=== PATIENT | female | born 1985 | race Hispanic/Latino ===

== ENCOUNTER 2016-07-26 19:52 | Emergency (ER) | payer SELFPAY ==
[2016-07-26 20:02] VITALS: TEMP 97.9; O2SAT 100
--- NOTE | 2016-07-26 20:34 | ED PDOC ---
HPI: Chest Pain Time Seen by Provider: 07/26/16 20:19 Chief Complaint (Nursing): Chest Pain Chief Complaint (Provider): chest pain History Per: Patient History/Exam Limitations: no limitations Onset/Duration Of Symptoms: Days (2), Waxing/Waning Quality: Squeezing Exacerbating Factors: None Alleviating Factors: None Additional History Per: Patient Additional Complaint(s): 31 y/o female presents with intermittent chest pain x 2 days. Patient notes pain to start from midsternal area across to left side of chest. Associated nausea episode yesterday, and dizziness episode earlier today; none at present. Patient notes vaginal bleeding x 1 month, for which she is being followed by her Retail Agent for and has recently started OCP. Denies headache, dizziness, vision changes, extremity numbness/weakness, shortness of breath, palpitations, abdominal pain, leg pain/swelling, recent travel. Past Medical History Reviewed: Historical Data, Nursing Documentation, Vital Signs Vital Signs: Last Vital Signs Temp 97.9 F 07/26/16 23:17 Pulse 85 07/26/16 23:17 Resp 16 07/26/16 23:17 BP 125/80 07/26/16 23:17 Pulse Ox 100 07/26/16 23:17 - Medical History PMH: No Chronic Diseases - Surgical History Surgical History: Tonsillectomy - Family History Family History: States: Unknown Family Hx - Social History Current smoker - smoking cessation education provided: No Alcohol: Occasional Drugs: Denies - Immunization History Hx Tetanus Toxoid Vaccination: No Hx Influenza Vaccination: No Hx Pneumococcal Vaccination: No - Home Medications Home Medications: Ambulatory Orders Medication Instructions Recorded No Known Home Med 07/26/16 - Allergies Allergies/Adverse Reactions: Allergies Allergy/AdvReac Type Severity Reaction Status Date / Time No Known Allergies Allergy Verified 10/06/13 18:12 Review of Systems ROS Statement: Except As Marked, All Systems Reviewed And Found Negative Cardiovascular: Positive for: Chest Pain Physical Exam - Reviewed Nursing Documentation Reviewed: Yes Vital Signs Reviewed: Yes - Physical Exam Appears: Positive for: Well, Non-toxic, No Acute Distress Head Exam: Positive for: ATRAUMATIC, NORMAL INSPECTION, NORMOCEPHALIC Skin: Positive for: Normal Color Eye Exam: Positive for: Normal appearance ENT: Positive for: Normal ENT Inspection Cardiovascular/Chest: Positive for: Regular Rate, Rhythm Respiratory: Positive for: Normal Breath Sounds Gastrointestinal/Abdominal: Positive for: Normal Exam Back: Positive for: Normal Inspection Extremity: Positive for: Normal ROM Neurologic/Psych: Positive for: Alert, Oriented - Laboratory Results Result Diagrams: 07/26/16 20:36 07/26/16 20:36 - ECG ECG: Positive for: Viewed By Me (reviewed by ED attending) ECG Rhythm: Positive for: Sinus Rhythm O2 Sat by Pulse Oximetry: 100 - Radiology X-Ray: Viewed By Me X-Ray Interpretation: No Acute Disease - Progress ED Course And Treament: labs, ekg, chest xray, toradol, pepcid Patient educated on findings, discharged with instructions to [facility]. Return to ED for worsening/concerning symptoms. Disposition - Clinical Impression Clinical Impression: Chest pain Counseled Patient/Family Regarding: Studies Performed, Diagnosis, Need For Followup - Disposition Referrals: [facility] [Outside] Disposition: Routine/Home Disposition Time: 23:23 Condition: IMPROVED Instructions: Chest Pain (ED)
[2016-07-26 20:42] LABS: BASO % 0.6 % (0.0-2.0); EOS # 0.1 K/uL (0.0-0.7); EOS % 1.6 % (0.0-4.0); HEMATOCRIT 38.8 % (34.0-47.0); LYMPH # 2.8 K/uL (1.0-4.3); LYMPH % 45.6 % (20.0-40.0); MEAN CELL VOLUME 90.4 fl (81.0-99.0); MEAN CORPUSCULAR HGB CONC 33.2 g/dL (33.0-37.0); MEAN PLATELET VOLUME 8.8 fl (7.2-11.7); MONO # 0.3 K/uL (0.0-0.8); MONO % 5.5 % (0.0-10.0); NEUT # 2.9 K/uL (1.8-7.0); NEUT % 46.7 % (50.0-75.0); NRBC % 0.1 % (0.0-0.0); RED CELL DISTRIBUTION WIDTH 13.1 % (11.5-14.5); WHITE BLOOD COUNT 6.2 K/uL (4.8-10.8)
[2016-07-26 21:11] LABS: ALB/GLOB RATIO 1.4 (1.0-2.1); ALKALINE PHOSPHATASE 60 U/L (38-126); ALT/SGPT 43 U/L (9-52); AST/SGOT 37 U/L (14-36); BILIRUBIN,TOTAL 0.4 mg/dl (0.2-1.3); BLOOD UREA NITROGEN 13 mg/dl (7-17); CALCIUM 9.3 mg/dL (8.4-10.2); CARBON DIOXIDE 25 mmol/L (22-30); CHLORIDE 102 mmol/L (98-107); GFR AFRICAN-AMERICAN > 60; GLUCOSE,RANDOM 121 mg/dL (65-105); POTASSIUM 3.9 MMOL/L (3.6-5.0); SODIUM 137 mmol/l (132-148); TOTAL PROTEIN 7.1 G/DL (6.3-8.2)
[2016-07-26 23:17] VITALS: BP 125/80; PULSE 85; RESP 16
--- NOTE | 2016-07-27 08:56 | RAD ---
HISTORY: chest pain COMPARISON: No prior. TECHNIQUE: Chest PA and lateral FINDINGS: LUNGS: No active pulmonary disease. PLEURA: No significant pleural effusion identified. No pneumothorax apparent. CARDIOVASCULAR: Normal. OSSEOUS STRUCTURES: No significant abnormalities. VISUALIZED UPPER ABDOMEN: Normal. OTHER FINDINGS: None. IMPRESSION: No active disease.
== END 2016-07-26 23:31 | disposition home or self-care (01) ==
LOC: H.ER 19:52
DX: R07.9 Chest pain, unspecified (principal)
CPT/HCPCS: 71020; 80053; 81025; 84484; 85025; 96374; 96375; 99284; J1885

== ENCOUNTER 2018-03-06 08:35 | Emergency (ER) | payer OTHER ==
[2018-03-06 08:50] VITALS: BMI 33.3
[2018-03-06] MEDS ORDERED: Sodium Chloride 0.9% 1,000 ML IV STA ×2 (09:20→12:20)
--- NOTE | 2018-03-06 09:28 | ED PDOC ---
HPI: Abdomen Time Seen by Provider: 03/06/18 09:10 Chief Complaint (Nursing): Abdominal Pain Chief Complaint (Provider): Abdominal Pain History Per: Patient History/Exam Limitations: no limitations Onset/Duration Of Symptoms: Hrs (X 7) Current Symptoms Are (Timing): Still Present Location Of Pain/Discomfort: Diffuse, RLQ Quality Of Discomfort: "Pain" Associated Symptoms: Fever, Nausea Additional Complaint(s): 32 year old female presents to the ED with a fever, abdominal pain, nausea and a headache for the last 7 hours. Patient reports she awoke at 2 am with a fever of 102 and took Tylenol. She denies vomiting, constipation, dysuria, diarrhea, hematuria and other medical complaints. PMD: none provided Past Medical History Reviewed: Historical Data, Nursing Documentation, Vital Signs Vital Signs: Last Vital Signs Temp 101.4 F H 03/06/18 08:57 Pulse 107 H 03/06/18 08:57 Resp 17 03/06/18 08:57 BP 130/83 03/06/18 08:57 Pulse Ox 97 03/06/18 08:57 - Medical History PMH: No Chronic Diseases - Surgical History Surgical History: Tonsillectomy - Family History Family History: States: Unknown Family Hx - Social History Current smoker - smoking cessation education provided: No - Immunization History Hx Tetanus Toxoid Vaccination: No Hx Influenza Vaccination: No Hx Pneumococcal Vaccination: No - Home Medications Home Medications: Ambulatory Orders Medication Instructions Recorded Acetaminophen [Tylenol 325mg tab] 2 tab PO Q4H PRN #20 tab 03/06/18 Ibuprofen [Motrin] 600 mg PO Q6H PRN #20 tab 03/06/18 Ondansetron ODT [Zofran ODT] 4 mg PO Q8H PRN #20 odt 03/06/18 Sulfamethoxazole/Trimethoprim 1 tab PO BID 14 Days #28 tab 03/06/18 [Bactrim DS 800 mg-160 mg] - Allergies Allergies/Adverse Reactions: Allergies Allergy/AdvReac Type Severity Reaction Status Date / Time No Known Allergies Allergy Verified 10/06/13 18:12 Review of Systems ROS Statement: Except As Marked, All Systems Reviewed And Found Negative Constitutional: Positive for: Fever Gastrointestinal: Positive for: Nausea, Abdominal Pain. Negative for: Vomiting, Diarrhea Genitourinary Female: Negative for: Dysuria, Frequency, Hematuria Neurological: Positive for: Headache Physical Exam - Reviewed Nursing Documentation Reviewed: Yes Vital Signs Reviewed: Yes - Physical Exam Appears: Positive for: In Acute Distress (moderate painful distress) Head Exam: Positive for: ATRAUMATIC, NORMAL INSPECTION, NORMOCEPHALIC Skin: Positive for: Normal Color, Warm, Dry Eye Exam: Positive for: EOMI, Normal appearance, PERRL Neck: Positive for: Normal, Painless ROM, Supple Cardiovascular/Chest: Positive for: Tachycardia (with regular rhythm) Respiratory: Positive for: Normal Breath Sounds. Negative for: Wheezing, Respiratory Distress Gastrointestinal/Abdominal: Positive for: Tenderness (generalizd abdominal tenderness, mostly in RLQ) Back: Positive for: Normal Inspection. Negative for: L CVA Tenderness, R CVA Tenderness Extremity: Positive for: Normal ROM (x 4). Negative for: Deformity Neurologic/Psych: Positive for: Alert, Oriented. Negative for: Motor/Sensory Deficits - Laboratory Results Result Diagrams: 03/06/18 09:38 03/06/18 09:38 - ECG O2 Sat by Pulse Oximetry: 97 (RA) Pulse Ox Interpretation: Normal Medical Decision Making Medical Decision Makin:18 Impression: fever and abdominal pain; Differential diagnoses: virus, appendicitis Initial Plan: --Abd & Pelvis CT --CMP --Urine dip --Urine preg --CBC --PTT --Prothrombin Time --Morphine 2 mg IV --NS IV --Zofran 4 mg IV --Blood cx --Urine cx --Influenza AB 11:51 Abd & [address]vis CT IMPRESSION: 1. Inhomogeneous enhancement at the upper pole of the right kidney with adjacent perinephric reactive change and no obstructive uropathy, suggestive of lobar nephronia. No obstructive uropathy bilaterally or radiodense urolithiasis. Left kidney appears unremarkable 2. No CT evidence to suggest appendicitis, 3. 2.0 CM right adnexal cyst. 12;14 --Pelvis US 16:50 US FINDINGS: UTERUS: Measures 9.8 x 5.6 x 4.2 cm. No prominent focal myometrial mass is appreciate with the uterus appearing anteverted. There is a small hyperechoic focus seen at the mid fundus posteriorly, likely reflecting a small fibroid measuring 0.3 cm greatest dimension. ENDOMETRIUM: Measures 5.0 mm in diameter. Unremarkable. CERVIX: No cervical abnormality identified. RIGHT OVARY: Measures 4.0 x 3.4 x 2.3 cm. No solid mass. Normal flow. Small follicles are identified. LEFT OVARY: Measures 3.5 x 1.9 x 2.8 cm. No solid mass. Normal flow. Small follicles are identified. FREE FLUID: No significant free fluid noted. OTHER FINDINGS: None. IMPRESSION: 1. No suspicious cyst or solid adnexal mass bilateral ovaries. No sonographic evidence to suggest ovarian torsion bilaterally. 2. Mildly prominent uterus without focal dominant mass although a small sub cm fibroid is likely present at the mid fundus posteriorly. Scribe Attestation: Documented by Regina Leblanc acting as a scribe for Deepti Lilly MD Provider Scribe Attestation: All medical record entries made by the Scribe were at my direction and personally dictated by me. I have reviewed the chart and agree that the record accurately reflects my personal performance of the history, physical exam, medical decision making, and the department course for this patient. I have also personally directed, reviewed, and agree with the discharge instructions and disposition. Disposition - Clinical Impression Clinical Impression: Pyelonephritis - Disposition Referrals: [facility] [place] [Outside] [facility] [Outside] Disposition: Routine/Home Disposition Time: 18:07 Condition: IMPROVED Prescriptions: Acetaminophen [Tylenol 325mg tab] 2 tab PO Q4H PRN #20 tab PRN Reason: Fever >100.4 F Ibuprofen [Motrin] 600 mg PO Q6H PRN #20 tab PRN Reason: Pain, Moderate (4-7) Ondansetron ODT [Zofran ODT] 4 mg PO Q8H PRN #20 odt PRN Reason: Nausea/Vomiting Sulfamethoxazole/Trimethoprim [Bactrim DS 800 mg-160 mg] 1 tab PO BID 14 Days #28 tab Instructions: Kidney Infection Forms: [facility] (Khmer)
[2018-03-06 09:43] LABS: BASO % 0.2 % (0.0-2.0); EOS % 0.1 % (0.0-4.0); HEMOGLOBIN 13.6 g/dL (12.0-16.0); LYMPH # 0.8 K/uL (1.0-4.3); LYMPH % 10.2 % (20.0-40.0); MEAN CELL VOLUME 88.4 fl (81.0-99.0); MEAN CORPUSCULAR HEMOGLOBIN 30.1 pg (27.0-31.0); MEAN PLATELET VOLUME 8.8 fl (7.2-11.7); MONO # 0.4 K/uL (0.0-0.8); MONO % 5.9 % (0.0-10.0); NEUT # 6.2 K/uL (1.8-7.0); NEUT % 83.6 % (50.0-75.0); RBC 4.52 Mil/uL (3.80-5.20); RED CELL DISTRIBUTION WIDTH 12.8 % (11.5-14.5); WHITE BLOOD COUNT 7.4 K/uL (4.8-10.8)
[2018-03-06 09:52] LABS: BLOOD UREA NITROGEN 9 mg/dl (7-17); GFR NON-AFRICAN AMERICAN > 60; INR 1.2
[2018-03-06 09:53] LABS: ALB/GLOB RATIO 1.3 (1.0-2.1); ALBUMIN 4.1 g/dL (3.5-5.0); ALT/SGPT 46 U/L (9-52); AST/SGOT 49 U/L (14-36); CALCIUM 8.9 mg/dL (8.4-10.2)
[2018-03-06 09:55] LABS: PARTIAL THROMBOPLASTIN TIME 34.3 Seconds (25.6-37.1)
[2018-03-06] MEDS ORDERED: Sodium Chloride 0.9% 50 ML IV ONE (10:09)
[2018-03-06] MEDS ORDERED: Iohexol 300 100 ML IJ ONE (10:09)
--- NOTE | 2018-03-06 11:55 | CT ---
Date of service: 03/06/2018 PROCEDURE: CT Abdomen and Pelvis with contrast HISTORY: RLQ pain, fever COMPARISON: Abdomen and pelvis CT with contrast 02/08/2016. TECHNIQUE: Following the intravenous administration of iodinated contrast material, a CT examination of the abdomen and pelvis performed from the domes of the diaphragms to the symphysis pubis with reformatted datasets provided in axial, sagittal and coronal planes. Oral contrast was not administered as per referring physician request. Coronal and sagittal reformats were generated. contrast dose: Omnipaque 300, 95 cc Radiation dose: Total exam DLP = 918.91 mGy-cm. This CT exam was performed using one or more of the following dose reduction techniques: Automated exposure control, adjustment of the mA and/or kV according to patient size, and/or use of iterative reconstruction technique. FINDINGS: LOWER THORAX: Unremarkable. LIVER: Unremarkable. No gross lesion or ductal dilatation. GALLBLADDER AND BILE DUCTS: Gallbladder is distended but otherwise unremarkable appearing. No radiodense cholelithiasis, mural thickening or pericholecystic fluid collection identified. PANCREAS: Unremarkable. No gross lesion or ductal dilatation. SPLEEN: No focal mass identified however the spleen is mildly enlarged at 13.6 cm. ADRENALS: Unremarkable. No mass. KIDNEYS AND URETERS: There is no obstructive uropathy identified bilaterally, however, there is inhomogeneous enhancement identified at an anterior segment of the upper pole right kidney with associated perinephric reaction suspicious for lobar nephronia. Left kidney appears unremarkable. No definite radiodense urolithiasis bilaterally. VASCULATURE: Unremarkable. No aortic aneurysm. No aortic atherosclerotic calcification or mural plaque present. BOWEL: Unremarkable. No obstruction. No gross mural thickening. APPENDIX: Normal appendix. PERITONEUM: Unremarkable. No free fluid. No free air. LYMPH NODES: No significant lymphadenopathy demonstrated. BLADDER: Unremarkable. REPRODUCTIVE: A 2.0 cm right adnexal cyst is identified with the left adnexal compartment unremarkable. BONES: No acute fracture. OTHER FINDINGS: None. IMPRESSION: 1. Inhomogeneous enhancement at the upper pole right kidney with adjacent perinephric reactive change and no obstructive uropathy, suggestive of lobar nephronia. No obstructive uropathy bilaterally or radiodense urolithiasis. Left kidney appears unremarkable. 2. No CT evidence to suggest appendicitis. 3. 2.0 cm right adnexal cyst.
[2018-03-06 14:11] LABS: SQUAMOUS EPITHIAL 5 /hpf (0-5); URINE BACTERIA MOD (<OCC); URINE BILIRUBIN NEGATIVE (NEGATIVE); URINE BLOOD SMALL (NEGATIVE); URINE CLARITY CLOUDY (Clear); URINE COLOR AMBER (YELLOW); URINE GLUCOSE (UA) NEG (Normal); URINE LEUKOCYTE ESTERASE SMALL Leu/uL (Negative); URINE PROTEIN 30 mg/dL (NEGATIVE); URINE UROBILINOGEN 0.2-1.0 mg/dL (0.2-1.0)
[2018-03-06 14:15] LABS: PROTHROMBIN TIME 13.4 Seconds (9.8-13.1)
[2018-03-06] MEDS ORDERED: cefTRIAXone (Rocephin) 1 gm Inj ONE (15:38)
--- NOTE | 2018-03-06 16:52 | US ---
Date of service: 03/06/2018 HISTORY: Lower abd pain, fever COMPARISON: And pelvis CT with contrast 03/06/2018. TECHNIQUE: Transabdominal and transvaginal pelvic ultrasound was performed with longitudinal and transverse images submitted for interpretation. FINDINGS: UTERUS: Measures 9.8 x 5.6 x 4.2 cm. No prominent focal myometrial mass is appreciate with the uterus appearing anteverted. There is a small hyperechoic focus seen at the mid fundus posteriorly, likely reflecting a small fibroid measuring 0.3 cm greatest dimension. ENDOMETRIUM: Measures 5.0 mm in diameter. Unremarkable. CERVIX: No cervical abnormality identified. RIGHT OVARY: Measures 4.0 x 3.4 x 2.3 cm. No solid mass. Normal flow. Small follicles are identified. LEFT OVARY: Measures 3.5 x 1.9 x 2.8 cm. No solid mass. Normal flow. Small follicles are identified. FREE FLUID: No significant free fluid noted. OTHER FINDINGS: None. IMPRESSION: 1. No suspicious cyst or solid adnexal mass bilateral ovaries. No sonographic evidence to suggest ovarian torsion bilaterally. 2. Mildly prominent uterus without focal dominant mass although a small sub cm fibroid is likely present at the mid fundus posteriorly.
[2018-03-06 17:45] LABS: VENOUS BLOOD GAS BASE EXCESS 0.3 mmol/L (0.0-2.0); VENOUS BLOOD GAS PCO2 38 mmHg (40-60); VENOUS BLOOD GAS PO2 49 mm/Hg (30-55); VENOUS BLOOD PH 7.42 (7.32-7.43)
[2018-03-06 18:55] VITALS: BP 119/71; PULSE 97; RESP 16; TEMP 99.9
[2018-03-08 12:58] VITALS: O2SAT 97
== END 2018-03-06 18:56 | disposition home or self-care (01) ==
LOC: H.ER 08:35
DX: N10 Acute pyelonephritis (principal); D25.9 Leiomyoma of uterus, unspecified
CPT/HCPCS: 74177; 76830; 76856; 80053; 81003; 81025; 82803; 85025; 85610; 85730; 87040; 87086; 87181; 87804; 99284; J0696; J2270; J2405; J7030; Q9967

== ENCOUNTER 2018-06-01 16:16 | Emergency (ER) | payer SELFPAY ==
[2018-06-01 16:16] VITALS: BMI 33.3
[2018-06-01 16:37] VITALS: BP 146/77; PULSE 94; RESP 19; TEMP 98; O2SAT 96
--- NOTE | 2018-06-01 16:52 | ED PDOC ---
HPI: Influenza Time Seen by Provider: 06/01/18 16:43 Chief Complaint: Cough, Cold, Congestion History Per: Patient Additional complaint(s):: Pt. states for the past 4 days she's had thick nasal congestion associated with b/l facial pain (worse when bending neck forward). Also reports having mild cough. Denies fever, chills, chest pain, SOB, hemoptysis, recent travel, sick contacts, head injury. Past Medical History Reviewed: Historical Data, Nursing Documentation, Vital Signs Vital Signs: Last Vital Signs Temp 98 F 06/01/18 16:34 Pulse 94 H 06/01/18 16:34 Resp 19 06/01/18 16:34 BP 146/77 06/01/18 16:34 Pulse Ox 96 06/01/18 16:34 - Surgical History Surgical History: Tonsillectomy - Family History Family History: States: Unknown Family Hx - Immunization History Hx Tetanus Toxoid Vaccination: No Hx Influenza Vaccination: No Hx Pneumococcal Vaccination: No - Home Medications Home Medications: Ambulatory Orders Medication Instructions Recorded Acetaminophen [Tylenol 325mg tab] 2 tab PO Q4H PRN #20 tab 03/06/18 Ibuprofen [Motrin] 600 mg PO Q6H PRN #20 tab 03/06/18 Ondansetron ODT [Zofran ODT] 4 mg PO Q8H PRN #20 odt 03/06/18 Sulfamethoxazole/Trimethoprim 1 tab PO BID 14 Days #28 tab 03/06/18 [Bactrim DS 800 mg-160 mg] Amoxicillin/Clavulanate [Augmentin 1 tab PO BID #20 tab 06/01/18 500 MG-125 MG] Fluconazole [Diflucan] 150 mg PO ONCE #1 tab 06/01/18 Fluticasone Propionate [Flonase] 2 spr NS DAILY PRN #1 bottle 06/01/18 - Allergies Allergies/Adverse Reactions: Allergies Allergy/AdvReac Type Severity Reaction Status Date / Time No Known Allergies Allergy Verified 06/01/18 16:37 Review of Systems ROS Statement: Except As Marked, All Systems Reviewed And Found Negative ENT: Positive for: Nose Congestion Respiratory: Positive for: Cough Physical Exam - Physical Exam Appears: Positive for: Well, Non-toxic, No Acute Distress Head Exam: Positive for: ATRAUMATIC, NORMAL INSPECTION, NORMOCEPHALIC Skin: Positive for: Normal Color, Warm. Negative for: Rash Eye Exam: Positive for: Normal appearance, EOMI, PERRL ENT: Positive for: TM Is/Are (non-erythematous, non-bulging b/l), Sinus Pain/Drainage (b/l malar sinus tenderness without swelling), Nasal Congestion. Negative for: Pharyngeal Erythema, Tonsillar Exudate, Tonsillar Swelling Neck: Positive for: Normal, Painless ROM Cardiovascular/Chest: Positive for: Regular Rate, Rhythm Respiratory: Positive for: Normal Breath Sounds. Negative for: Respiratory Distress Neurologic/Psych: Positive for: Alert, Oriented (x3). Negative for: Aphasia, Facial Droop - ECG O2 Sat by Pulse Oximetry: 96 Disposition - Clinical Impression Clinical Impression: Acute sinusitis - Patient ED Disposition Is Patient to be Admitted: No - Disposition Referrals: [facility] [Outside] Disposition: Routine/Home Disposition Time: 16:50 Condition: STABLE Additional Instructions: FOLLOW UP WITH PMD FOR FURTHER EVALUATION RETURN TO ED IMMEDIATELY IF SYMPTOMS WORSEN FREDI NG, thank you for letting us take care of you today. Your provider was Higinio Diaz MD and you were treated for FLU LIKE SYMPTOMS. The emergency medical care you received today was directed at your acute symptoms. If you were prescribed any medication, please fill it and take as directed. It may take several days for your symptoms to resolve. Return to the Emergency Department if your symptoms worsen, do not improve, or if you have any other problems. Please contact your doctor or call one of the physicians/clinics you have been referred to that are listed on the Patient Visit Information form that is included in your discharge packet. Bring any paperwork you were given at discharge with you along with any medications you are taking to your follow up visit. Our treatment cannot replace ongoing medical care by a primary care provider outside of the emergency department. Thank you for allowing the [facility] team to be part of your care today. If you had an X-Ray or CT scan: A Radiologist will review the ED reading if any change in treatment is needed we will contact you. If you had a blood, urine, or wound culture: It will take several days for the results, if any change in treatment is needed we will contact you. If you had an STI test: It will take 48 hours for the results. Please call after 1 week if you have not heard back. Prescriptions: Amoxicillin/Clavulanate [Augmentin 500 MG-125 MG] 1 tab PO BID #20 tab Fluconazole [Diflucan] 150 mg PO ONCE #1 tab Fluticasone Propionate [Flonase] 2 spr NS DAILY PRN #1 bottle PRN Reason: Allergy Symptoms Instructions: Sinusitis, Adult (DC) Forms: [employer] (Mexican)
== END 2018-06-01 17:02 | disposition home or self-care (01) ==
LOC: H.ER 16:16
DX: J01.90 Acute sinusitis, unspecified (principal)

== ENCOUNTER 2018-06-27 21:00 | Emergency (ER) | payer SELFPAY ==
[2018-06-27 21:00] VITALS: BMI 33.3
[2018-06-27 21:10] VITALS: BP 122/80; RESP 18; TEMP 98.3
[2018-06-27 21:58] VITALS: O2SAT 100
--- NOTE | 2018-06-27 22:09 | ED PDOC ---
HPI: Chest Pain Time Seen by Provider: 06/27/18 21:50 Chief Complaint (Nursing): Breast Problem History Per: Patient Additional Complaint(s): Pt. states since March 2018 she developed a L breast mass and pain. Pt. states she was evaluated in [facility] and had both a mammogram and US of the breast which showed a non-malignant, non-infectious breast mass. Reports pain and mass have been constant and present despite taking Motrin. Denies fever, chills, nipple discharge, SOB, hemoptysis, hx of DVT or PE, family hx of breast CA. Pt. further reports that mass changes in size throughout the day - increasing and decreasing. Currently in it's smallest state. Past Medical History Reviewed: Historical Data, Nursing Documentation, Vital Signs Vital Signs: Last Vital Signs Temp 98.3 F 06/27/18 21:07 Pulse 69 06/27/18 21:07 Resp 18 06/27/18 21:07 BP 122/80 06/27/18 21:07 Pulse Ox 100 06/27/18 21:07 - Surgical History Surgical History: Tonsillectomy - Family History Family History: States: No Known Family Hx, Unknown Family Hx - Immunization History Hx Tetanus Toxoid Vaccination: No Hx Influenza Vaccination: No Hx Pneumococcal Vaccination: No - Home Medications Home Medications: Ambulatory Orders Medication Instructions Recorded Acetaminophen [Tylenol 325mg tab] 2 tab PO Q4H PRN #20 tab 03/06/18 Ibuprofen [Motrin] 600 mg PO Q6H PRN #20 tab 03/06/18 Ondansetron ODT [Zofran ODT] 4 mg PO Q8H PRN #20 odt 03/06/18 Sulfamethoxazole/Trimethoprim 1 tab PO BID 14 Days #28 tab 03/06/18 [Bactrim DS 800 mg-160 mg] Amoxicillin/Clavulanate [Augmentin 1 tab PO BID #20 tab 06/01/18 500 MG-125 MG] Fluconazole [Diflucan] 150 mg PO ONCE #1 tab 06/01/18 Fluticasone Propionate [Flonase] 2 spr NS DAILY PRN #1 bottle 06/01/18 Naproxen [Naprosyn] 500 mg PO BID PRN #10 tab 06/27/18 - Allergies Allergies/Adverse Reactions: Allergies Allergy/AdvReac Type Severity Reaction Status Date / Time No Known Allergies Allergy Verified 06/27/18 21:07 Wells Criteria for PE - Wells Criteria for Pulmonary Embolism Clinical Signs and Symptoms of DVT: No P.E is #1 Diagnosis, or Equally Likely: No Heart Rate >100: No Immobilization at least 3 days;Surgery previous 4 weeks: No Previous, objectively diagnosed PE or DVT: No Hemoptysis: No Malignancy w/treatment within 6 months, or palliative: No Total Score: 0 Review of Systems ROS Statement: Except As Marked, All Systems Reviewed And Found Negative Physical Exam - Physical Exam Appears: Positive for: Well, Non-toxic, No Acute Distress Skin: Positive for: Normal Color, Warm. 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 Negative for: Respiratory Distress Neurologic/Psych: Positive for: Alert, Oriented (x3) - Laboratory Results Urine POC: Negative - ECG ECG: Positive for: Interpreted By Me ECG Rhythm: Positive for: Sinus Bradycardia. Negative for: ST/T Changes Rate: 58 O2 Sat by Pulse Oximetry: 100 - Radiology X-Ray: Interpreted by Me (CXR) X-Ray Interpretation: No Acute Disease - Progress ED Course And Treament: Toradol 30mg IM, EKG, CXR ordered. 2310 Pt. advised to f/u with [facility] or OBGYN for further testing and re-evaluation of breast mass. Pt agrees with plan and care. Disposition - Clinical Impression Clinical Impression: Cyst of breast - Patient ED Disposition Is Patient to be Admitted: No - Disposition Referrals: [facility] [Outside] Disposition: Routine/Home Disposition Time: 23:08 Condition: IMPROVED Additional Instructions: FOLLOW UP WITH [facility] OR YOUR OBGYN FOR FURTHER EVALUATION RETURN TO ED IMMEDIATELY IF SYMPTOMS WORSEN FREDI NG, thank you for letting us take care of you today. Your provider was Nhan Rivera MD and you were treated for LEFT BREAST PAIN. The emergency medical care you received today was directed at your acute symptoms. If you were prescribed any medication, please fill it and take as directed. It may take several days for your symptoms to resolve. Return to the Emergency Department if your symptoms worsen, do not improve, or if you have any other problems. Please contact your doctor or call one of the physicians/clinics you have been referred to that are listed on the Patient Visit Information form that is included in your discharge packet. Bring any paperwork you were given at discharge with you along with any medications you are taking to your follow up visit. Our treatment cannot replace ongoing medical care by a primary care provider outside of the emergency department. Thank you for allowing the [facility] team to be part of your care today. If you had an X-Ray or CT scan: A Radiologist will review the ED reading if any change in treatment is needed we will contact you. If you had a blood, urine, or wound culture: It will take several days for the results, if any change in treatment is needed we will contact you. If you had an STI test: It will take 48 hours for the results. Please call after 1 week if you have not heard back. Prescriptions: Naproxen [Naprosyn] 500 mg PO BID PRN #10 tab PRN Reason: Pain Instructions: Common Breast Problems, Lowering Your Risk of Breast Cancer Forms: [employer] (Luxembourgish) Print Language: LUX[place]BOURGISH
[2018-06-27 22:37] VITALS: PULSE 58
--- NOTE | 2018-06-28 08:39 | RAD ---
Date of service: 06/27/2018 HISTORY: L breast mass COMPARISON: No prior. TECHNIQUE: Chest PA and lateral FINDINGS: LUNGS: No active pulmonary disease. PLEURA: No significant pleural effusion identified. No pneumothorax apparent. CARDIOVASCULAR: No aortic atherosclerotic calcification present. Normal cardiac size. No pulmonary vascular congestion. OSSEOUS STRUCTURES: No significant abnormalities. VISUALIZED UPPER ABDOMEN: Normal. OTHER FINDINGS: None. IMPRESSION: No active disease.
== END 2018-06-28 00:04 | disposition home or self-care (01) ==
LOC: H.ER 21:00
DX: N60.02 Solitary cyst of left breast (principal)
CPT/HCPCS: 71046; 96372; 99282; J1885